=== PATIENT | female | born 1965 | race Caucasian/White ===

== ENCOUNTER 2016-09-28 10:11 | Outpatient (CLI) | payer OTHER ==
[2016-09-28 10:59] LABS: eGFR (African) > 60; eGFR (Non-African) > 60
== END 2016-09-28 10:12 ==
LOC: LAB 10:11
PROVIDERS: ATTEND Family Medicine
DX: Z00.00 Encounter for general adult medical examination without abnormal findings (principal)
CPT/HCPCS: 36415; 80053; 80061

== ENCOUNTER 2017-12-06 09:43 | Outpatient (CLI) | payer OTHER ==
[2017-12-06 10:40] LABS: eGFR (African) > 60; eGFR (Non-African) > 60
== END 2017-12-06 09:44 ==
LOC: LAB 09:43
PROVIDERS: ATTEND Family Medicine
DX: Z00.00 Encounter for general adult medical examination without abnormal findings (principal)
CPT/HCPCS: 36415; 80053; 80061